=== PATIENT | male | born 1950 | race Caucasian/White ===

== ENCOUNTER 2018-06-21 19:12 | Emergency (ER) | payer MEDICARE ==
[~2018-06-21] VITALS: Ht 172.7 cm; Wt 78.6 kg
[2018-06-21] MEDS ORDERED: HYZAAR1 TAB PO (19:32)
[2018-06-21] MEDS ORDERED: VITAMIN D32000 UNI2 PO (19:33)
[2018-06-21] MEDS ORDERED: MOTRIN200 MG PO (19:33)
[2018-06-21] MEDS ORDERED: OMEPRAZOLE10 MG PO (19:34)
[2018-06-21 20:55] VITALS: BP 132/81
== END 2018-06-21 20:55 | disposition home or self-care (01) ==
LOC: ED 19:12
PROC: 0HQGXZZ Repair Left Hand Skin, External Approach (ICD-10-PCS; principal; 2018-06-21)
DX: S61.012A Laceration without foreign body of left thumb without damage to nail, initial encounter (principal); S61.211A Laceration without foreign body of left index finger without damage to nail, initial encounter; S61.213A Laceration without foreign body of left middle finger without damage to nail, initial encounter; S61.215A Laceration without foreign body of left ring finger without damage to nail, initial encounter; H66.90 Otitis media, unspecified, unspecified ear; I10 Essential (primary) hypertension; W31.2XXA Contact with powered woodworking and forming machines, initial encounter; Y92.009 Unspecified place in unspecified non-institutional (private) residence as the place of occurrence of the external cause

== ENCOUNTER 2018-07-03 09:23 | Emergency (ER) | payer MEDICARE ==
[~2018-07-03] VITALS: Ht 172.7 cm; Wt 78.0 kg
[~2018-07-03 09:23] MED LIST: HYZAAR1 TAB PO; MOTRIN200 MG PO; OMEPRAZOLE10 MG PO; VITAMIN D32000 UNI2 PO
[2018-07-03 10:04] VITALS: BP 135/77
== END 2018-07-03 10:05 | disposition home or self-care (01) ==
LOC: ED 09:23
DX: S61.402D Unspecified open wound of left hand, subsequent encounter (principal); X58.XXXD Exposure to other specified factors, subsequent encounter; I10 Essential (primary) hypertension